=== PATIENT | male | born 1980 | race Hispanic/Latino ===

== ENCOUNTER 2018-01-18 04:38 | Emergency (ER) | payer BC ==
[2018-01-18 05:13] LABS: Bilirubin Negative (Negative); Blood, Urine Moderate (Negative); Clarity Clear (Clear); Glucose, Urine (Dipstick) Negative (Negative); Leukocyte Negative (Negative); Nitrite Negative (Negative); Protein, Urine (Dipstick) Negative (Neg-Trace)
[2018-01-18 05:17] LABS: Bacteria/HPF None Seen HPF (None Seen); Squamous Epithelial None Seen HPF (0-3); WBC/HPF 0-3 HPF (0-3)
[2018-01-18] MEDS ORDERED: Metoclopramide HCl 10 MG/2 ML VIAL ONE (05:26)
[2018-01-18 05:44] LABS: ALT (SGPT) 23 U/L (8-55); AST (SGOT) 18 U/L (5-34); Albumin 4.4 g/dL (3.5-5.0); Alkaline Phosphatase 88 U/L (40-150); Anion Gap 15 mmol/L (10-20); BUN (Urea Nitrogen) 17 mg/dL (8.9-20.6); Calc. Creatinine Clearance 0 mL/min (70-130); Calcium 9.6 mg/dL (7.8-10.44); Carbon Dioxide 22 mmol/L (22-29); Chloride 105 mmol/L (98-107); Estimated GFR-MDRD Greater than 90; Globulin 2.4 g/dL (2.4-3.5); Glucose 100 mg/dL (70-105); Potassium 3.7 mmol/L (3.5-5.1); Protein, Total 6.8 g/dL (6.0-8.3); Sodium 138 mmol/L (136-145)
[2018-01-18] MEDS ORDERED: Ibuprofen 800 MG TAB ONE (06:19)
--- NOTE | 2018-01-18 09:30 | CT ---
PRELIMINARY REPORT/[facility]/EMERGENTY AFTER-HOURS PROCEDURE CT Abdomen and Pelvis Without Intravenous Contrast CLINICAL HISTORY: 37 years old, male; Pain; Abdominal pain; Flank; Right; Patient HX: Groin pain and right flank pain s tarted at 0430. History of stones TECHNIQUE: Axial computed tomography images of the abdomen and pelvis without intravenous contrast. All CT scans at this facility use at least one of these dose optimization techniques: automated exposure control; mA and/or kV adjustment per patient size (includes targeted exams where dose is matched to clinical indication); or iterative reconstruction. Coronal and sagittal reformatted images were created and reviewed. COMPARISON: No relevant prior studies available. FINDINGS: Lung bases: Calcified granuloma in the left lung base. ABDOMEN: Liver: Unremarkable. Gallbladder and bile ducts: Unremarkable Pancreas: No ductal dilation. Spleen: Unremarkable. Adrenals: Unremarkable. Kidneys and ureters: Mild right hydronephrosis and hydroureter due to a 4 mm obstructing stone in the right ureteropelvic junction. A 3 mm nonobstructing stone in the left kidney. Stomach and bowel: Diverticulosis of the colon without inflammatory changes. PELVIS: Appendix: No findings to suggest acute appendicitis. Bladder: Unremarkable. Reproductive: Unremarkable. ABDOMEN and PELVIS: Intraperitoneal space: No free air. No significant fluid collection. Bones/joints: No acute fracture. No dislocation. Soft tissues: Unremarkable. Vasculature: Unremarkable. No abdominal aortic aneurysm. Lymph nodes: Scattered non specific subcentimeter mesenteric lymph nodes. IMPRESSION: 1. Mild right hydronephrosis and hydroureter due to a 4 mm obstructing stone in the right ureteropelv ic junction. 2. A 3 mm nonobstructing stone in the left kidney. Thank you for allowing us to participate in the care of your patient. Dictated and Authenticated by: Trever Fuentes MD 01/18/2018 6:38 AM Central Time ([place] & [place]) FINAL REPORT CT ABDOMEN AND PELVIS WITHOUT CONTRAST: I agree with the preliminary report given by Dr. Fuentes of [facility]. POS: [facility]
== END 2018-01-18 07:35 | disposition home or self-care (01) ==
LOC: NAV ERS 04:38
DX: N13.2 Hydronephrosis with renal and ureteral calculous obstruction (principal); Z87.891 Personal history of nicotine dependence
CPT/HCPCS: 74176; 80053; 81003; 81015; 96365; 96375; 96376; J2270; J2765

== ENCOUNTER 2023-05-02 02:06 | Emergency (ER) | payer BC ==
[2023-05-02 03:10] LABS: #Lymphocytes 1.8 thou/uL (1.20-3.40); #Neutrophils 3.1 thou/uL (1.40-6.50); %Eosinophils 3.3 % (0.0-10.0); %Lymphocytes 32.2 % (21.0-51.0); %Monocytes 9.6 % (0.0-10.0); %Neutrophils 53.9 % (42.0-75.0); Hematocrit 44.9 % (42.0-52.0); Hemoglobin 15.7 g/dL (14.0-18.0); Manual Diff?? NO; Mean Corpuscular HGB CONC 34.8 g/dL (32.0-36.0); Mean Corpuscular Hemoglobin 31.6 pg (27.0-31.0); Mean Corpuscular Volume 90.8 fl (78.0-98.0); Platelet Count 287 10x3/uL (130-400); RBC Distribution Width 11.5 % (11.5-14.5); Red Blood Cell (RBC) Count 4.95 mill/uL (4.70-6.10); White Blood Cell (WBC) Count 5.7 10x3/uL (4.8-10.8)
[2023-05-02 03:11] LABS: #Basophils 0.1 thou/uL (0.0-0.2); #Eosinphils 0.2 thou/uL (0.0-0.7); #Monocytes 0.5 thou/uL (0.11-0.59)
[2023-05-02] MEDS ORDERED: fentaNYL 50 mcg/mL 1 mL Vial ONE ×2 (03:11→03:47)
[2023-05-02] MEDS ORDERED: Sodium Chloride 0.9% 500 ML ONE (03:12)
[2023-05-02 03:17] LABS: Anion Gap 14 mmol/L (10-20); BUN (Urea Nitrogen) 13 mg/dL (8.9-20.6); CK (CPK) 73 U/L (30-200); Calc. Creatinine Clearance 0 mL/min (70-130); Calcium 9.4 mg/dL (7.8-10.44); Carbon Dioxide 24 mmol/L (22-29); Chloride 107 mmol/L (98-107); Estimated GFR 112; Glucose 103 mg/dL (70-105); Potassium 4.2 mmol/L (3.5-5.1); Sodium 141 mmol/L (136-145)
[2023-05-02] MEDS ORDERED: Cyclobenzaprine 10 MG TAB ONE (03:46)
== END 2023-05-02 04:14 | disposition home or self-care (01) ==
LOC: NAV ERS 02:06
DX: M54.50 Low back pain, unspecified (principal); M54.6 Pain in thoracic spine; M79.10 Myalgia, unspecified site; F17.210 Nicotine dependence, cigarettes, uncomplicated
CPT/HCPCS: 80048; 82550; 83605; 85025; 96374; 96376; J3010; J7030